=== PATIENT | female | born 1955 | race Asian ===

== ENCOUNTER 2022-10-26 12:16 | Emergency (ER) | payer MEDICAID ==
[~2022-10-26] VITALS: Ht 152.4 cm; Wt 54.4 kg
--- NOTE | 2022-10-26 12:22 | NUR ---
Pt bib family from home. Chief complaint irritated throat to the left side, Difficulty swallowing for past 12 hours . Pt states ate fish at noon yesterday and has since had irritation to the throat. Pt is aaox3, with clear speech even and unlabored breaths, denies SOB denies chest pain. HTN HX:[id number]/102 Pt states forgot to take BP RX this morning.
--- NOTE | 2022-10-26 12:30 | NUR ---
ER at bedside examining patient.
[2022-10-26 12:31] VITALS: BP_SYST 178; PULSE 108; RESP 20; TEMP 98; O2SAT 98
[2022-10-26] MEDS ORDERED: PRO40 PO (14:02)
--- NOTE | 2022-10-26 14:13 | NUR ---
Patient given written and verbal discharge instructions and verbalizes understanding. ER MD discussed with patient the results and treatment provided. Patient in stable condition. ID arm band removed. Opportunity for questions provided and answered. Medication side effect fact sheet provided.
[2022-10-26 14:14] VITALS: BP_SYST 168; PULSE 89; RESP 20; TEMP 98; O2SAT 98
== END 2022-10-26 14:13 | disposition home or self-care (01) ==
LOC: SED 12:16
DX: S10.11XA Abrasion of throat, initial encounter (principal); Z79.899 Other long term (current) drug therapy; W45.8XXA Other foreign body or object entering through skin, initial encounter; Y93.89 Activity, other specified; Y92.89 Other specified places as the place of occurrence of the external cause; Y99.8 Other external cause status
CPT/HCPCS: 70490; 76376; 99284